=== PATIENT | male | born 1965 | race Caucasian/White ===

== ENCOUNTER 2018-04-28 12:35 | Emergency (ER) | payer BC ==
[2018-04-28] MEDS ORDERED: ASPIRIN 81 MG TABLET, CHEWABLE PO ONE (13:02)
--- NOTE | 2018-04-28 13:11 | ER Document Report ---
ED Medical Screen (RME) - General Chief Complaint: Chest Pain Stated Complaint: CHEST AND ARM PAIN Time Seen by Provider: 04/28/18 13:01 Mode of Arrival: Ambulatory Information source: Patient Notes: 53 yr old male with hx of hypercholesterolemia presents with complaitns of left anterior chest pain radiating down left arm while he was outside. pt not on any medications I have greeted and performed a rapid initial assessment of this patient. A comprehensive ED assessment and evaluation of the patient, analysis of test results and completion of the medical decision making process will be conducted by additional ED providers. PHYSICAL EXAMINATION: GENERAL: Well-appearing, well-nourished and in no acute distress. HEAD: Atraumatic, normocephalic. EYES: Pupils equal round extraocular movements intact, conjunctiva are normal. ENT: Nares patent NECK: Normal range of motion LUNGS: No respiratory distress Musculoskeletal: Normal range of motion NEUROLOGICAL: Normal speech, normal gait. PSYCH: Normal mood, normal affect. SKIN: Warm, Dry, normal turgor, no rashes or lesions noted. TRAVEL OUTSIDE OF THE [place] IN LAST 30 DAYS: No - Related Data Allergies/Adverse Reactions: No Known Allergies Allergy (Verified 04/28/18 12:35) Physical Exam - Vital signs Vitals: Temp Pulse Resp BP 98.5 F 83 22 H 124/87 H 04/28/18 12:50 04/28/18 12:50 04/28/18 12:50 04/28/18 12:50 Course - Vital Signs Vital signs: Temp Pulse Resp BP Pulse Ox 98.5 F 83 22 H 124/87 H 04/28/18 12:50 04/28/18 12:50 04/28/18 12:50 04/28/18 12:50
[2018-04-28 13:41] LABS: ABSOLUTE BASOPHILS # (AUTO) 0.1 10^3/uL (0.0-0.2); ABSOLUTE EOSINOPHILS # (AUTO) 0.4 10^3/uL (0.0-0.6); ABSOLUTE LYMPHOCYTES (AUTO) 3.5 10^3/uL (0.5-4.7); ABSOLUTE MONOCYTES (AUTO) 0.7 10^3/uL (0.1-1.4); ABSOLUTE NEUT (AUTO) 4.7 10^3/uL (1.7-8.2); EOSINOPHILS % (AUTO) 3.9 % (0-6); HEMATOCRIT 47.4 % (37.9-51.0); HEMOGLOBIN 16.3 g/dL (13.5-17.0); LYMPHOCYTES % (AUTO) 37.2 % (13-45); MEAN CORPUSCULAR HEMOGLOBIN 30.5 pg (27.0-33.4); MEAN CORPUSCULAR HGB CONC 34.4 g/dL (32.0-36.0); MEAN CORPUSCULAR VOLUME 89 fl (80-97); MONOCYTES % (AUTO) 7.1 % (3-13); PLATELET COUNT 216 10^3/uL (150-450); RED BLOOD COUNT 5.36 10^6/uL (4.35-5.55); RED CELL DISTRIBUTION WIDTH 14.4 % (11.5-14.0); SEGMENTED NEUTROPHILS % (AUTO) 50.8 % (42-78); TOTAL CELLS COUNTED % (AUTO) 100 %; WHITE BLOOD COUNT 9.3 10^3/uL (4.0-10.5)
--- NOTE | 2018-04-28 13:43 | RADIOLOGY REPORT (SQ) ---
EXAM DESCRIPTION: CHEST SINGLE VIEW COMPLETED DATE/TIME: 04/28/2018 1:33 pm REASON FOR STUDY: chest pain COMPARISON: None. NUMBER OF VIEWS: One view. TECHNIQUE: Single frontal radiographic view of the chest acquired. LIMITATIONS: None. FINDINGS: LUNGS AND PLEURA: Slightly hyperinflated but otherwise generally clear. No acute infiltra te, pneumothorax or fluid. MEDIASTINUM AND HILAR STRUCTURES: No masses. Contour normal. HEART AND VASCULAR STRUCTURES: Heart normal in size. Normal vasculature. BONES: No acute findings. HARDWARE: None in the chest. OTHER: No other significant finding. IMPRESSION: No acute cardiopulmonary disease. TECHNICAL DOCUMENTATION: JOB ID: [id number] [employer]- All Rights Reserved Reading location - IP/workstation name: [email or web address]
[2018-04-28 13:51] LABS: ALANINE AMINOTRANSFERASE 54 U/L (21-72); ALBUMIN 4.4 g/dL (3.5-5.0); ALKALINE PHOSPHATASE 50 U/L (38-126); ANION GAP 13 (5-19); ASPARTATE AMINO TRANSFERASE 36 U/L (17-59); BILIRUBIN,DIRECT 0.6 mg/dL (0.0-0.4); BILIRUBIN,TOTAL 0.6 mg/dL (0.2-1.3); BLOOD UREA NITROGEN 17 mg/dL (7-20); CALCIUM 9.4 mg/dL (8.4-10.2); CARBON DIOXIDE 26 mmol/L (22-30); CHLORIDE 106 mmol/L (98-107); CREATINE KINASE 188 U/L (55-170); GLUCOSE 115 mg/dL (75-110); POTASSIUM 4.4 mmol/L (3.6-5.0); SODIUM 144.8 mmol/L (137-145); TOTAL PROTEIN 7.1 g/dL (6.3-8.2)
[2018-04-28 14:05] LABS: CREATINE KINASE MB 1.38 ng/mL (<4.55)
[2018-04-28 14:14] LABS: TROPONIN I < 0.012 ng/mL
--- NOTE | 2018-04-28 14:51 | ER Document Report ---
ED General - General Chief Complaint: Chest Pain Stated Complaint: CHEST AND ARM PAIN Time Seen by Provider: 04/28/18 13:01 Mode of Arrival: Ambulatory Notes: 53-year-old male presents emergency department with complaints of chest pain. Patient states that the chest pain started around noon. He describes the pain as a pressure sensation in the left chest with radiation to the left arm. Patient states that he does have a history of high cholesterol but not denies any diabetes, hypertension, coronary artery disease, family history of coronary artery disease. Patient states that he does smoke. Patient does have a history of COPD. He is not on any oxygen. Patient does not use any medications for his COPD. Patient denies any recent travel, recent surgery, calf pain, history of DVT or PE, hormone use, history of malignancy. TRAVEL OUTSIDE OF THE [place] IN LAST 30 DAYS: No - HPI Patient complains to provider of: Chest pain Onset: This afternoon Onset/Duration: Sudden Quality of pain: No pain Severity: None Pain Level: Denies Associated symptoms: None Exacerbated by: Denies Relieved by: Denies Similar symptoms previously: No Recently seen / treated by doctor: No - Related Data Allergies/Adverse Reactions: No Known Allergies Allergy (Verified 04/28/18 12:35) Past Medical History - General Information source: Patient - Social History Smoking Status: Current Every Day Smoker Chew tobacco use (# tins/day): No Frequency of alcohol use: Rare Drug Abuse: None Family History: Reviewed & Not Pertinent Patient has suicidal ideation: No Patient has homicidal ideation: No - Past Medical History Cardiac Medical History: Reports: Hx Hypercholesterolemia Pulmonary Medical History: Reports: Hx COPD Renal/ Medical History: Denies: Hx Peritoneal Dialysis Past Surgical History: Reports: Hx Abdominal Surgery - Hernia, Hx Orthopedic Surgery - Lt arm, Hx Tonsillectomy Review of Systems - Review of Systems Constitutional: No symptoms reported EENT: No symptoms reported Cardiovascular: Chest pain Respiratory: No symptoms reported Gastrointestinal: No symptoms reported Genitourinary: No symptoms reported Male Genitourinary: No symptoms reported Musculoskeletal: No symptoms reported Skin: No symptoms reported Neurological/Psychological: No symptoms reported -: Yes All other systems reviewed and negative Physical Exam - Vital signs Vitals: Temp Pulse Resp BP 98.5 F 83 22 H 124/87 H 04/28/18 12:50 04/28/18 12:50 04/28/18 12:50 04/28/18 12:50 Interpretation: Normal - Notes Notes: PHYSICAL EXAMINATION: GENERAL: Well-appearing, well-nourished and in no acute distress. HEAD: Atraumatic, normocephalic. EYES: Pupils equal round and reactive to light, extraocular movements intact, sclera anicteric, conjunctiva are normal. ENT: Nares patent, oropharynx clear without exudates. Moist mucous membranes. NECK: Normal range of motion, supple without lymphadenopathy LUNGS: Breath sounds clear to auscultation bilaterally and equal. No wheezes rales or rhonchi. HEART: Regular rate and rhythm without murmurs ABDOMEN: Soft, nontender, nondistended abdomen. No guarding, no rebound. No masses appreciated. Musculoskeletal: Normal range of motion, no pitting or edema. No cyanosis. NEUROLOGICAL: Cranial nerves grossly intact. Normal speech, normal gait. Normal sensory, motor exams PSYCH: Normal mood, normal affect. SKIN: Warm, Dry, normal turgor, no rashes or lesions noted. Course - Re-evaluation Re-evalutation: 04/28/18 16:20 On re-evaluation, patient continues to be asymptomatic. Patient is ready to be discharged home as he has "dinner" plans. Patient instructed to follow-up with his primary care physician this week, to take [id number] medication as needed for symptom relief, and to return to the emergency department for any worsening symptoms. Patient is agreeable to plan of care. - Vital Signs Vital signs: Temp Pulse Resp BP Pulse Ox 98.5 F 83 17 117/81 100 04/28/18 12:50 04/28/18 12:50 04/28/18 14:01 04/28/18 14:01 04/28/18 14:47 - Laboratory Result Diagrams: 04/28/18 13:15 04/28/18 13:15 Laboratory results interpreted by me: 04/28/18 04/28/18 13:15 13:15 RDW 14.4 H Glucose 115 H Direct Bilirubin 0.6 H Creatine Kinase 188 H - EKG Interpretation by Me Additional EKG results interpreted by me: 04/28/18 16:19 Repeat EKG: Ventricular rate 57, as needed of 160, QRS duration 90, QTc 398, normal sinus rhythm, no ischemic changes. Discharge - Discharge Clinical Impression: Chest pain Qualifiers: Chest pain type: unspecified Qualified Code(s): R07.9 - Chest pain, unspecified Condition: Good Disposition: HOME, SELF-CARE Instructions: Chest Pain of Unclear Cause ([facility]) Referrals: SARA BOURNE MD [ACTIVE STAFF] - Follow up as needed
[2018-04-28 16:28] VITALS: BP 115/72
--- NOTE | 2018-04-28 16:39 | EKG REPORT ---
SEVERITY:- NORMAL ECG - SINUS RHYTHM : Confirmed by: Mindy Ravi 28-Apr-2018 16:38:59
--- NOTE | 2018-04-28 16:39 | EKG REPORT ---
SEVERITY:- OTHERWISE NORMAL ECG - SINUS RHYTHM BORDERLINE RIGHT AXIS DEVIATION : Confirmed by: Mindy Ravi 28-Apr-2018 16:39:07
== END 2018-04-28 16:25 | disposition home or self-care (01) ==
LOC: ER 12:35
DX: R07.9 Chest pain, unspecified (principal); F17.200 Nicotine dependence, unspecified, uncomplicated; E78.00 Pure hypercholesterolemia, unspecified; J44.9 Chronic obstructive pulmonary disease, unspecified
CPT/HCPCS: 36415; 71045; 80053; 82550; 82553; 84484; 85025; 93005; 93010; 99285